=== PATIENT | female | born 1980 | race Caucasian/White ===

== ENCOUNTER 2016-03-31 23:51 | Emergency (ER) | payer OTHER ==
[2016-04-01] MEDS ORDERED: ACETAMINOPHEN 500 MG TABLET PO STA (00:21)
[2016-04-01] MEDS ORDERED: ACETAMINOPHEN 500 MG TABLET PO ONE (00:23)
--- NOTE | 2016-04-01 00:52 | XRAY Preliminary Report ---
Exam: XR Chest 2 View PA/LAT IMPRESSION: 1. No acute abnormality seen in the chest. [facility] SITE ID: [id number]
--- NOTE | 2016-04-01 00:55 | XRAY Report ---
EXAM: CHEST RADIOGRAPHY EXAM DATE: 04/01/2016 12:43 AM. CLINICAL HISTORY: Chest and sternal pain on the right, 4th rib. COMPARISON: None. TECHNIQUE: 2 views. FINDINGS: Lungs/Pleura: No focal opacities evident. No pneumothorax or pleural effusion. Normal volumes. Mediastinum: Heart and mediastinal contours are unremarkable. Other: None. IMPRESSION: 1. No acute abnormality seen in the chest. [facility] Referring Provider Line: [phone] SITE ID: [id number]
--- NOTE | 2016-04-01 00:57 | ED Physician Documentation ---
PD HPI UPPER EXT INJURY - Stated complaint Stated Complaint: CHEST,SHOULDER PX - Chief complaint Chief Complaint: General - History obtained from History obtained from: Patient - History of Present Illness Location: Right, Shoulder Type of injury: Twist Where injury occurred: Home Timing - onset: How many minutes ago (30) Timing - details: Abrupt onset Improved by: Immobilization Worsened by: Moving, Palpating Similar symptoms before: Has not had sx before Recently seen: Not recently seen - Additonal information Additional information: Patient is a 35 year old female wiht no significant past medical history who is presenting to the emergency department for pectoral pain that radiates to her shoulder. patient states that she was sleeping in bed when her right arm got caught in the blanket as she rolled over causing a tearing pain in her right chest with radiation to her right arm. Review of Systems Constitutional: denies: Fever, Chills Eyes: denies: Decreased vision Ears: denies: Loss of hearing, Ear pain Cardiac: denies: Chest pain / pressure, Palpitations, Pedal edema, Calf pain Respiratory: denies: Cough, Wheezing GI: denies: Abdominal Pain, Nausea, Vomiting Skin: denies: Rash, Lesions, Abrasion (s), Laceration (s) Musculoskeletal: reports: Extremity pain, Other (chest wall pain) Neurologic: denies: Generalized weakness, Focal weakness, Numbness Immunocompromised: denies: Immunocompromised PD PAST MEDICAL HISTORY - Past Medical History Past Medical History: Yes : Kidney stones - Past Surgical History Past Surgical History: Yes - Allergies Allergies/Adverse Reactions: Allergies Allergy/AdvReac Type Severity Reaction Status Date / Time ibuprofen [From Motrin] Allergy Respiratory Verified 04/01/16 00:06 naproxen sodium * Allergy Respiratory Verified 04/01/16 00:06 [From Aleve Cold and Sinus] - Social History Does the pt smoke?: No Smoking Status: Never smoker Does the pt drink ETOH?: No Does the pt have substance abuse?: No - Immunizations Immunizations are current?: Yes - POLST Patient has POLST: No PD ED PE NORMAL - Vitals Vital signs reviewed: Yes - General General: Alert and oriented X 3, No acute distress - HEENT HEENT: Atraumatic, PERRL - Neck Neck: No bony TTP - Cardiac Cardiac: RRR, No murmur - Respiratory Respiratory: No respiratory distress, Clear bilaterally - Abdomen Abdomen: Soft, Non tender, Non distended - Derm Derm: Normal color, Warm and dry, No rash - Extremities Extremities: No deformity, No tenderness to palpate, Normal ROM s pain, No edema , No calf tenderness / cord - Neuro Neuro: Alert and oriented X 3, 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, No motor deficit, No sensory deficit - Psych Psych: Normal mood, Normal affect PD ED PE EXPANDED - Cardiac Cardiac: Chest wall TTP (tenderness to palpation of right sternal boarder near 5th rib, no deformity, no step off, no signs of muscle tear, no ecchymosis) Results - Vitals Vitals: Vital Signs - 24 hr 03/31/16 23:57 Temperature 36.2 C L Heart Rate 83 Respiratory 18 Rate Blood Pressure 121/79 O2 Saturation 97 Oxygen O2 Source Room air - Rads (name of study) chest Radiology: Final report received (normal chest x-ray) PD MEDICAL DECISION MAKING - ED course Complexity details: reviewed results, re-evaluated patient, considered differential, d/w patient ED course: Patient was seen and examined at bedside. patient was in no acute distress. Patient was treated with tylenol and sent for imaging. When patient return the results were reviewed and within normal limits. Patient's symptoms were likely due to a muscle strain. Patient reqiured no further work up and was stable for discharge with outpatient follow. Departure - Departure Disposition: 01 Home, Self Care Clinical Impression: Muscle strain of chest wall Condition: Good Instructions: ED Strain Muscle Ext Follow-Up: primary,care provider [Other] - As Needed Comments: Your diagnostics today were within normal limits. X-ray is mainly used for fractures or dislocations but cannot rule out muscle strains or tears. You symptoms are most consistent with a muscle strain. Due to your allergy you should take tylenol for pain and you should ice in the initial phase and then start to incorporate heat into your treatment. You should follow up with your pmd if your symptoms persist for more than 2 weeks. You may return to the emergency department at any time for new, worsening or uncontrollable symptoms.
[2016-04-01 01:13] VITALS: BP 89/42
== END 2016-04-01 01:11 | disposition home or self-care (01) ==
LOC: ED 23:51
DX: S29.011A Strain of muscle and tendon of front wall of thorax, initial encounter (principal); M25.511 Pain in right shoulder; X50.1XXA Overexertion from prolonged static or awkward postures, initial encounter; Y93.84 Activity, sleeping; Y92.003 Bedroom of unspecified non-institutional (private) residence as the place of occurrence of the external cause; Y99.8 Other external cause status; Z88.6 Allergy status to analgesic agent
CPT/HCPCS: 71020; 99283; A9270

== ENCOUNTER 2016-05-01 18:51 | Emergency (ER) | payer OTHER ==
[2016-05-01] MEDS ORDERED: diazePAM 5 MG TABLET PO STA (19:34)
[2016-05-01] MEDS ORDERED: ONDANSETRON ODT 4 MG TABLET TL STA (19:34)
[2016-05-01] MEDS ORDERED: ONDANSETRON ODT 4 MG TABLET ONE (19:37)
[2016-05-01] MEDS ORDERED: diazePAM 5 MG TABLET PO ONE (19:37)
[2016-05-01] MEDS ORDERED: cefTRIAXone 1 GM VIAL IM STA (20:17)
[2016-05-01] MEDS ORDERED: cefTRIAXone 1 GM VIAL ONE (20:21)
[2016-05-01] MEDS ORDERED: LIDOCAINE-MPF 1% 5 ML VIAL ONE (20:21)
== END 2016-05-01 20:38 | disposition home or self-care (01) ==
DX: N12 Tubulo-interstitial nephritis, not specified as acute or chronic (principal); M51.35 Other intervertebral disc degeneration, thoracolumbar region; Z97.5 Presence of (intrauterine) contraceptive device
CPT/HCPCS: 36415; 72100; 80053; 81001; 81025; 83690; 85025; 96372; 99283; 99284; A9270; Q0162

== ENCOUNTER 2016-06-26 19:07 | Emergency (ER) | payer OTHER ==
[2016-06-26 19:12] VITALS: BP 119/75
--- NOTE | 2016-06-26 19:27 | ED Physician Documentation ---
History of Present Illness - Stated complaint Stated Complaint: FEET PX - Chief complaint Chief Complaint: Ext Problem - History obtained from History obtained from: Patient - History of Present Illness Timing: Other (She is subacute occasional stabbing pains to the bottom of her feet, feels like she is getting stabbed, it only lasts for a few moments. Today it is associated with chest pressure and her hands are going numb as well. There is no shortness of breath. She is on a ketogenic diet.) Review of Systems Constitutional: denies: Fever, Chills Nose: reports: Reviewed and negative Cardiac: reports: Chest pain / pressure. denies: Palpitations, Pedal edema, Calf pain Respiratory: denies: Dyspnea PD PAST MEDICAL HISTORY - Past Medical History : Kidney stones - Past Surgical History Past Surgical History: Yes - Present Medications Home Medications: Ambulatory Orders Medication Instructions Recorded Confirmed Ciprofloxacin HCl [Cipro] 500 mg PO BID #20 tablet 05/01/16 Promethazine [Phenergan] 25 mg PO Q6H PRN #10 tab 05/01/16 - Allergies Allergies/Adverse Reactions: Allergies Allergy/AdvReac Type Severity Reaction Status Date / Time ibuprofen [From Motrin] Allergy Respiratory Verified 04/01/16 00:06 naproxen sodium * Allergy Respiratory Verified 04/01/16 00:06 [From Aleve Cold and Sinus] - Social History Does the pt smoke?: No Smoking Status: Never smoker Does the pt drink ETOH?: No Does the pt have substance abuse?: No - Immunizations Immunizations are current?: Yes - POLST Patient has POLST: No PD ED PE NORMAL - Vitals Vital signs reviewed: Yes - General General: Alert and oriented X 3, No acute distress - Neck Neck: Supple, no meningeal sign, No bony TTP - Cardiac Cardiac: RRR, No murmur - Respiratory Respiratory: No respiratory distress, Clear bilaterally - Abdomen Abdomen: Soft, Non tender - Extremities Extremities: Other (Slightly diminished sensation to the bottom of both feet, difficulty with sharp versus dull discrimination but gross sensation is intact. Normal pedal and radial pulses.) - Neuro Neuro: Alert and oriented X 3, No motor deficit, No sensory deficit, Normal speech, Other - Psych Psych: Normal mood, Normal affect Results - Vitals Vitals: Vital Signs - 24 hr 06/26/16 19:09 Temperature 36.8 C Heart Rate 74 Respiratory 12 Rate Blood Pressure 119/75 O2 Saturation 100 Oxygen O2 Source Room air - EKG (time done) 1935 Rate: Rate (enter#) (80) Rhythm: NSR [place]: Normal Intervals: Normal [place] QRS: Normal Ischemia: Normal ST segments Computer interpretation: Agree with computer - Labs Labs: Laboratory Tests 06/26/16 06/26/16 06/26/16 19:30 19:35 19:35 Sodium 135 Potassium 3.8 Chloride 100 L Carbon Dioxide 27 Anion Gap 8.0 BUN 15 Creatinine 0.7 Estimated GFR (MDRD) 95 Glucose 96 Calcium 9.1 Total Bilirubin < 0.2 L AST 22 ALT 18 Alkaline Phosphatase 54 Total Protein 8.1 Albumin 4.7 Globulin 3.4 Albumin/Globulin Ratio 1.4 Lipase 40 TSH 3.38 Urine Color YELLOW Urine Clarity CLEAR Urine pH 5.0 Ur Specific [place] <=1.005 Urine Protein NEGATIVE Urine Glucose (UA) NEGATIVE Urine Ketones NEGATIVE Urine Occult Blood NEGATIVE Urine Nitrite NEGATIVE Urine Bilirubin NEGATIVE Urine Urobilinogen 0.2 (NORMAL) Ur Leukocyte Esterase NEGATIVE Ur Microscopic Review NOT INDICATED Urine Culture Comments NOT INDICATED Urine HCG, Qual NEGATIVE PD MEDICAL DECISION MAKING - ED course ED course: She has a peripheral neuropathy of unclear etiology, doesn't seem to be a vascular cause. Thyroid function electrolytes are normal. She does drink heavily but not daily. She is also on a ketogenic diet. The patient and family were counseled as to the diagnosis and need for followup. I counseled the patient with regard to signs and symptoms that would necessitate an urgent reevaluation in the emergency department. They understand they are welcome to return at any time if worse or if not improving as expected. This document was made in part using voice recognition software. While efforts are made to proofread this document, sound alike and grammatical errors may occur. Departure - Departure Disposition: 01 Home, Self Care Clinical Impression: Neuropathy Condition: Good Record reviewed to determine appropriate education?: Yes Instructions: ED Neuropathy Peripheral Comments: TALK WITH YOUR PMD ABOUT NERVE CONDUCTION AND VITAMIN TESTING.
[2016-06-26 20:02] LABS: BILIRUBIN,URINE NEGATIVE (NEGATIVE)
[2016-06-26 20:03] LABS: HCG UR QUAL NEGATIVE; UA CHARGE (STRIP ONLY) YES; UR CULTURE IF IND NOT INDICATED
[2016-06-26 20:25] LABS: ALBUMIN/GLOBULIN RATIO 1.4 (1.0-2.2); BILIRUBIN,TOTAL < 0.2 mg/dL (0.2-1.0); BUN - BLOOD UREA NITROGEN 15 mg/dL (6-20); CALCIUM 9.1 mg/dL (8.5-10.3); CARBON DIOXIDE - CO2 27 mmol/L (21-32); CHLORIDE 100 mmol/L (101-111); CREATININE 0.7 mg/dL (0.4-1.0); GFR - MDRD 95 (>89); GLUCOSE 96 mg/dL (70-100); LIPASE 40 U/L (22-51); POTASSIUM 3.8 mmol/L (3.5-5.0); SODIUM 135 mmol/L (135-145); TOTAL PROTEIN 8.1 g/dL (6.7-8.2)
== END 2016-06-26 20:55 | disposition home or self-care (01) ==
LOC: ED 19:07
DX: G62.9 Polyneuropathy, unspecified (principal); R07.89 Other chest pain
CPT/HCPCS: 36415; 80053; 81001; 81003; 81025; 83690; 84443; 87086; 93005; 93010; 99283; 99284

== ENCOUNTER 2016-10-25 12:16 | Emergency (ER) | payer OTHER ==
[2016-10-25 12:27] VITALS: BP 105/72
[2016-10-25] MEDS ORDERED: predniSONE 20 MG TABLET PO STA (13:19)
[2016-10-25] MEDS ORDERED: SULFAMETH/TRIMETH DS 800/160 MG TABLET PO STA (13:19)
[2016-10-25] MEDS ORDERED: CEPHALEXIN 250 MG CAPSULE PO STA (13:19)
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
[2016-10-25] MEDS ORDERED: CEPHALEXIN 250 MG CAPSULE PO ONE (13:27)
[2016-10-25] MEDS ORDERED: predniSONE 20 MG TABLET ONE (13:27)
[2016-10-25] MEDS ORDERED: SULFAMETH/TRIMETH DS 800/160 MG TABLET PO ONE (13:27)
== END 2016-10-25 13:33 | disposition home or self-care (01) ==
LOC: ED 12:16
DX: L03.113 Cellulitis of right upper limb (principal); T78.40XA Allergy, unspecified, initial encounter
CPT/HCPCS: 99283; A9270; J7512

== ENCOUNTER 2017-05-02 21:20 | Outpatient (CLI) | payer OTHER | END 2017-05-02 23:59 | disposition critical access hospital (66) | LOC: EMS 21:20 | PROVIDERS: ATTEND Surgery | DX: S09.90XA Unspecified injury of head, initial encounter (principal); R41.0 Disorientation, unspecified; R07.9 Chest pain, unspecified; R47.81 Slurred speech; X58.XXXA Exposure to other specified factors, initial encounter; Y92.481 Parking lot as the place of occurrence of the external cause | CPT/HCPCS: A0425; A0427 ==

== ENCOUNTER 2017-05-02 21:37 | Emergency (ER) | payer OTHER ==
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
[2017-05-02] MEDS ORDERED: LORazepam 2 MG/ML VIAL IVP STA (22:05)
--- NOTE | 2017-05-02 22:55 | CT Preliminary Report ---
Exam: CT HEAD W/O IMPRESSION: No acute intracranial process. [facility] SITE ID: [id number]
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
--- NOTE | 2017-05-02 22:56 | XRAY Report ---
EXAM: LEFT RIB RADIOGRAPHY EXAM DATE: 05/02/2017 10:49 PM. CLINICAL HISTORY: Fall, left chest pain. COMPARISON: Chest, 04/01/2016. TECHNIQUE: 1 view of the chest and 2 views of the ribs. FINDINGS: Bones: No fracture seen. Lungs: No alveolar consolidation or pleural effusion. No pneumothorax. Mediastinum: Heart and mediastinal contours are unremarkable. Other: None. IMPRESSION: 1. No acute abnormality seen in the chest or ribs. [facility] Referring Provider Line: [phone] SITE ID: [id number]
--- NOTE | 2017-05-02 23:05 | CT Report ---
EXAM: CT MAXILLOFACIAL WITHOUT CONTRAST EXAM DATE: 05/02/2017 10:36 PM. CLINICAL HISTORY: Head injury, left facial swelling. COMPARISONS: None. TECHNIQUE: Thin-section axial images were acquired of the face without contrast. Post-processing: Cor onal and sagittal reformats. Other: None. In accordance with CT protocol optimization, one or more of the following dose reduction techniques w ere utilized for this exam: automated exposure control, adjustment of mA and/or KV based on patient s ize, or use of iterative reconstructive technique. FINDINGS: Soft Tissue: The infratemporal fossa and parapharyngeal spaces are unremarkable. Orbits: Symmetric and unremarkable. Bones: Nondisplaced left orbital roof fracture (series 6, image 47 and series 3, image 122). Temporomandibular Joints: The temporomandibular joints are symmetric and normally located. Sinuses: Mild left maxillary sinus and mild ethmoid sinus mucosal thickening. No sinus fluid levels. Other: None. IMPRESSION: Nondisplaced left orbital roof fracture. [facility] Referring Provider Line: [phone] SITE ID: [id number]
[2017-05-02] MEDS ORDERED: LIDOCAINE 1% 2 ML VIAL SUBQ STA (23:19)
[2017-05-03] MEDS ORDERED: SODIUM CHLORIDE 0.9% 1,000 ML IV STA (00:19)
[2017-05-03] MEDS ORDERED: SODIUM CHLORIDE 0.9% 1,000 ML IV ONE (00:29)
[2017-05-03 01:30] LABS: BASOPHILS % (AUTO) 0.5 %; EOSINOPHILS # (AUTO) 0.1 10^3/uL (0.0-0.7); EOSINOPHILS % (AUTO) 1.1 %; HGB - HEMOGLOBIN 13.9 g/dL (12.0-16.0); LYMPHOCYTES % (AUTO) 30.2 %; MEAN CORPUSCULAR HEMOGLOBIN 31.1 pg (27.0-31.0); MEAN CORPUSCULAR HGB CONC 32.6 g/dL (32.0-36.0); MEAN CORPUSCULAR VOLUME 95.3 fL (81.0-99.0); MEAN PLATELET VOLUME 8.1 fL (7.9-10.8); MONOCYTES # (AUTO) 0.2 10^3/uL (0.0-1.0); MONOCYTES % (AUTO) 3.2 %; NEUTROPHILS # (AUTO) 4.3 10^3/uL (1.5-6.6); PLT - PLATELET COUNT 346 10^3/uL (130-450); RED BLOOD COUNT 4.48 10^6/uL (4.20-5.40); RED CELL DISTRIBUTION WIDTH 14.5 % (12.0-15.0); WHITE BLOOD COUNT 6.5 x10^3/uL (4.8-10.8)
[2017-05-03 01:39] LABS: CALCIUM 8.6 mg/dL (8.5-10.3); CREATININE 0.5 mg/dL (0.4-1.0)
[2017-05-03 02:34] VITALS: BP 91/71
[2017-05-03] MEDS ORDERED: BACITRACIN OINT TOP ONE (02:38)
== END 2017-05-03 02:33 | disposition home or self-care (01) ==
LOC: EDUNIT# → SUPCPDRO 21:37 → ED 21:37
DX: S09.90XA Unspecified injury of head, initial encounter (principal); S01.81XA Laceration without foreign body of other part of head, initial encounter; S02.82XA Fracture of other specified skull and facial bones, left side, initial encounter for closed fracture; X58.XXXA Exposure to other specified factors, initial encounter
CPT/HCPCS: 12011; 36415; 70450; 70486; 71101; 80048; 80320; 85025; 96374; 99284; 99285; A9270; J2060

== ENCOUNTER 2017-11-10 10:32 | Emergency (ER) | payer OTHER ==
[2017-11-10 10:40] VITALS: BP 114/73
--- NOTE | 2017-11-10 11:50 | ED Physician Documentation ---
PD HPI CHEST PAIN - Stated complaint Stated Complaint: CHEST PX - Chief complaint Chief Complaint: Cardiac - History obtained from History obtained from: Patient - History of Present Illness Timing - onset: Today Timing - onset during: Rest Timing - duration: Hours Timing - details: Gradual onset, Still present Quality: Sharp, Pain Location: Substernal, Left chest Radiation: Abdominal, Left upper extremity Improved by: Antacids Worsened by: Palpation Associated symptoms: No: Shortness of air, Diaphoresis, Nausea, Vomiting, Feeling faint / dizzy, General Weakness, Palpitations, Cough Similar symptoms before: Diagnosis (heart burn) Recently seen: Not recently seen Review of Systems Constitutional: denies: Fever, Chills Eyes: denies: Decreased vision Ears: denies: Ear pain Nose: denies: Congestion Throat: denies: Sore throat Cardiac: reports: Chest pain / pressure. denies: Palpitations Respiratory: denies: Dyspnea, Cough GI: reports: Abdominal Pain. denies: Abdominal Swelling, Nausea, Vomiting, Diarrhea : denies: Dysuria, Frequency Skin: denies: Rash PD PAST MEDICAL HISTORY - Past Medical History Past Medical History: Yes : Kidney stones - Past Surgical History Past Surgical History: Yes - Present Medications Home Medications: Ambulatory Orders Medication Instructions Recorded Confirmed Sucralfate [Carafate] 1 gm PO ACHS #30 tablet 11/10/17 - Allergies Allergies/Adverse Reactions: Allergies Allergy/AdvReac Type Severity Reaction Status Date / Time ibuprofen [From Motrin] Allergy Respiratory Verified 11/10/17 10:40 naproxen sodium * Allergy Respiratory Verified 11/10/17 10:40 [From Aleve Cold and Sinus] - Social History Does the pt smoke?: No Smoking Status: Never smoker Does the pt drink ETOH?: No Does the pt have substance abuse?: No - Immunizations Immunizations are current?: Yes - POLST Patient has POLST: No PD ED PE NORMAL - Vitals Vital signs reviewed: Yes (normal ) - General General: Alert and oriented X 3, Well developed/nourished, Other (patient appears to be in pain ) - HEENT HEENT: Atraumatic, PERRL, EOMI - Neck Neck: Supple, no meningeal sign, No bony TTP - Cardiac Cardiac: RRR, No murmur - Respiratory Respiratory: No respiratory distress, Clear bilaterally - Abdomen Abdomen: Soft, Other (mild epigastric tenderness ) - Back Back: No CVA TTP, No spinal TTP - Derm Derm: Normal color, Warm and dry, No rash - Extremities Extremities: No deformity, No edema - Neuro Neuro: Alert and oriented X 3, heel splitter 2-12 intact, No motor deficit, No sensory deficit, Normal speech Eye Opening: Spontaneous Motor: Obeys Commands Verbal: Oriented GCS Score: 15 - Psych Psych: Normal mood, Normal affect Results - Vitals Vitals: Vital Signs - 24 hr 11/10/17 10:35 Temperature 36.8 C Heart Rate 78 Respiratory 16 Rate Blood Pressure 114/73 O2 Saturation 100 Oxygen O2 Source Venturi mask - EKG (time done) 1038 Rate: Rate (enter#) (79) Rhythm: NSR Ischemia: Normal ST segments Compare to prior EKG: Unchanged from prior EKG (5--17) Computer interpretation: Agree with computer PD MEDICAL DECISION MAKING - ED course Complexity details: reviewed results, re-evaluated patient, considered differential, d/w patient ED course: 36-year-old female with heartburn that radiates up into her neck denies use of ibuprofen or Aleve and states that she does drink on a regular basis beer.. She has developed this increased symptoms this morning and got very little relief w ith Rolaids. Here in the emergency department she is administered a GI cocktail consisting of 10 mg of viscous lidocaine and 30 mg Mylanta with near complete resolution of her pain. I suspect her pain is related to reflux. She is given a dose of Pepcid here in the emergency department we will start her on some - Sepsis Event Vital Signs: Vital Signs - 24 hr 11/10/17 10:35 Temperature 36.8 C Heart Rate 78 Respiratory 16 Rate Blood Pressure 114/73 O2 Saturation 100 Oxygen O2 Source Venturi mask Departure - Departure Disposition: 01 Home, Self Care Clinical Impression: Reflux esophagitis Condition: Stable Instructions: ED GERD Follow-Up: Lex Calvo ARNP [Primary Care Provider] - Prescriptions: Sucralfate [Carafate] 1 gm PO ACHS #30 tablet Comments: Today it appears the symptoms of chest pain you are having are related to your esophagus and stomach. It is imperative that you use a medication to reduce the acid in her stomach for at least 10 days. I recommend you use Pepcid AC. Discharge Date/Time: 11/10/17 12:35
[2017-11-10] MEDS ORDERED: LIDOCAINE VISCOUS 2% 15 ML UDC MM STA (11:57)
[2017-11-10] MEDS ORDERED: MAG HYDROX/AL HYDROX/SIMETH 30 ML UDC PO STA (11:57)
[2017-11-10] MEDS ORDERED: FAMOTIDINE 20 MG TABLET PO STA (12:28)
== END 2017-11-10 12:35 | disposition home or self-care (01) ==
LOC: ED 10:32
DX: K21.0 Gastro-esophageal reflux disease with esophagitis (principal)
CPT/HCPCS: 93005; 99283; A9270

== ENCOUNTER 2018-01-30 10:59 | Day surgery (SDC) | payer OTHER ==
[~2018-01-30 10:59] MED LIST: ceFAZolin 2 GM/50 ML 2 GM/50 ML BAG IV ONE
[2018-01-30 11:27] LABS: HCG UR QUAL NEGATIVE
[2018-01-30] MEDS ORDERED: LACTATED RINGERS 1,000 ML IV ONE ×2 (11:36→15:04)
--- NOTE | 2018-01-30 12:37 | ANESTHESIA ---
Pre-Anesthesia VS, & Labs - Diagnosis Mechanical complication of IUD - Procedure Hysteroscopy, IUD removal Vital Signs: Temp Pulse Resp BP Pulse Ox 36.6 C 99 18 112/63 99 01/30/18 11:09 01/30/18 11:09 01/30/18 11:09 01/30/18 11:09 01/30/18 11:09 Height 5 ft 7 in Weight (kg) 73.48 kg Body Mass Index 25.3 - NPO >8 hours Last Fluid Intake: Water at 0900 - Is Patient ?: No - Lab Results Lab results reviewed: Yes Home Medications and Allergies Home Medications: Ambulatory Orders Omeprazole Magnesium [Prilosec] 10 mg PO 01/23/18 Omeprazole Magnesium [Prilosec] 10 mg PO 01/23/18 Allergies/Adverse Reactions: Allergies Allergy/AdvReac Type Severity Reaction Status Date / Time ibuprofen [From Motrin] Allergy Respiratory Verified 01/23/18 10:38 naproxen sodium * Allergy Respiratory Verified 01/23/18 10:38 [From Aleve Cold and Sinus] NSAIDS (Non-Steroidal Allergy Respiratory Verified 01/30/18 11:38 Anti-Inflamma ciprofloxacin [From Cipro] AdvReac Rash Verified 01/23/18 10:38 Anes History & Medical History - Anesthetic History Anesthesia Complications: reports: No previous complications Family history of Anesthesia Complications: Denies Family history of Malignant Hyperthermia: Denies - Medical History Cardiovascular: reports: None Pulmonary: reports: None Gastrointestinal: reports: None, GERD Urinary: reports: Kidney stones Neuro: reports: None Musculoskeletal: reports: None Endocrine/Autoimmune: reports: None Blood Disorders: reports: None Skin: reports: None Smoking Status: Current some day smoker Psychosocial: reports: No issues indicated - Surgical History Urologic: Ureterolithotomy (stones) Gynecologic: section Exam General: Alert, Oriented x3 Dental: WNL, TMJ Mouth Opening: Greater than 4 Fingerbreadths Mallampati classification: I Thyromental Distance: greater than 6 cm Respiratory: Lungs clear Cardiovascular: Regular rate Neurological: Normal speech Mental/Cognitive Status: Alert/Oriented X3 Cognitive Status: Within normal limits Plan Anesthesia Type: General Consent for Procedure(s) Verified and Reviewed: Yes Code Status: Attempt Resuscitation ASA classification: 2-Mild systemic disease Is this case an emergency?: No
[2018-01-30] MEDS ORDERED: LIDOCAINE 1% 50 ML MDV ONE (14:03)
[2018-01-30] MEDS ORDERED: LIDOCAINE 1% 50 ML MDV SUBQ ONE (14:39)
[2018-01-30] MEDS ORDERED: DEXAMETHASONE 4 MG/ML VIAL IVP ONE (14:58)
[2018-01-30] MEDS ORDERED: LIDOCAINE-MPF 2% 5 ML VIAL IM ONE (14:58)
[2018-01-30] MEDS ORDERED: fentaNYL 100 MCG/2 ML VIAL IVP ONE (14:58)
[2018-01-30] MEDS ORDERED: PROPOFOL 200 MG/20 ML VIAL IVP ONE (14:58)
[2018-01-30] MEDS ORDERED: ONDANSETRON 4 MG/2 ML VIAL IVP ONE (14:58)
[2018-01-30] MEDS ORDERED: MIDAZOLAM 2 MG/2 ML VIAL IVP ONE (14:58)
[2018-01-30] MEDS ORDERED: ONDANSETRON 4 MG/2 ML VIAL IVP PRN (15:14)
[2018-01-30] MEDS ORDERED: HYDROcod/ACETAM 10 MG/325 MG TABLET PO PRN (15:14)
--- NOTE | 2018-01-30 15:28 | OPERATIVE REPORT ---
Operative Report - General Planned Procedure: Hysteroscopic removal of intrauterine device (IUD), insertion of IUD Pre-Op Diagnosis: Mechanical complication of IUD Procedure Performed: Dilation of the cervix, removal of retained intrauterine device, insertion of new progestin (Mirena) intrauterine device Post Op Diagnosis: ARACELI - Procedure Note Primary Surgeon: Dr. Prisca Yu Secondary Surgeon: None Anesthesia Provider: OLE Whipple Anesthesia Technique: General LMA, Local Pathology: None IV Fluids (mL): 700 Estimated Blood Loss (mL): 5 Urine Output (mL): 15 Complications: None - Other Other Information/Narrative: Indications: The patient is a 37-year-old 2 para 1 abortus 1 female here for hysteroscopic removal of a retained Mirena intrauterine device followed by reinsertion of a new Mirena intrauterine device. She had a failed attempt at removal in the [facility] x2, including once with misoprostol to soften the cervix. She also had failed attempts with her PCM. At the time of the last clinic attempt, the cervix could be readily entered, but the IUD could not be grasped and removed with packing forceps, IUD hook, or Cytobrush. She had a pelvic ultrasound which showed appropriately placed intrauterine device despite the strings not being seen visible.The risks, benefits, limitations, alternatives, and expectations of surgery were discussed. The consent was reviewed and signed prior to surgery. Findings: Uterus anteverted and approximately 6 weeks in size. No adnexal masses were palpable. Internal os was slightly stenotic but opened easily with serial dilation using Hanks dilators. IUD removed with blind sweeps using alligator clamp. Uterus sounded to 9.5 cm. Procedure: The patient was taken to the operating room, where general anesthesia with LMA was administered without difficulty. She was then positioned in the low dorsal lithotomy position with her lower extremities in [place] stirrups. Exam under anesthesia was then performed with the findings as noted above. Vagina and perineum were then prepped and draped in a sterile fashion, and bladder was drained with an in-and-out catheterization. Procedure Time-Out was then performed. A sterile bivalved speculum was then placed into the vagina, and the anterior lip of the cervix was grasped with a single-tooth tenaculum. One percent L idocaine with epinephrine was then injected at the 2:00, 4:00, 7:00, and 10:00 positions for a paracervical block. Serial dilation using Eben dilators was then performed. An IUD hook was inserted and unsuccessful at retrieving the strings. Blind placement of alligator forcep was then performed, and on the fourth attempt, the IUD was grasped and removed. The uterus was then sounded, and the new Mirena IUD inserted without difficulty. Mirena Lot # [id number], expiration date 04/2020. Strings were trimmed to 3 cm. There was minimal bleeding from the cervix at this time. The tenaculum was removed, and the tenaculum sites were hemostatic without need for silver nitrate. At this point, the procedure was deemed completed. Sponge, lap, and needle count were correct x 3, and there were no complications. The patient was awakened, replaced supine, and transferred to the PACU in stable condition.
[2018-01-30 15:33] VITALS: BP 112/60
== END 2018-01-30 11:00 | disposition home or self-care (01) ==
LOC: SDS 10:59
PROVIDERS: ATTEND Obstetrics & Gynecology
PROC: 0U2DXHZ Change Contraceptive Device in Uterus and Cervix, External Approach (ICD-10-PCS; principal; 2018-01-30 12:00)
PROC: 0UJD8ZZ Inspection of Uterus and Cervix, Via Natural or Artificial Opening Endoscopic (ICD-10-PCS; 2018-01-30 12:00)
DX: T83.32XA Displacement of intrauterine contraceptive device, initial encounter (principal); F17.200 Nicotine dependence, unspecified, uncomplicated
CPT/HCPCS: 58300; 58301; 58555; 81025; 87070; 87430; J0690; J7120

== ENCOUNTER 2019-03-25 03:39 | Emergency (ER) | payer OTHER ==
--- NOTE | 2019-03-25 03:40 | ED Physician Documentation ---
History of Present Illness - Stated complaint Stated Complaint: L HAND SWELLING - History obtained from History obtained from: Patient (Patient is a [id number] 38-year-old female who presents with a chief complaint of swelling and redness to the left hand. 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 She denies any fevers or trauma she denies any history of MRSA or any history of IV drug abuse. the patient reports she is not currenlty and reports her LMP was 1 week ago.) Review of Systems Constitutional: reports: Reviewed and negative Eyes: reports: Reviewed and negative Ears: reports: Reviewed and negative Nose: reports: Reviewed and negative Throat: reports: Reviewed and negative Cardiac: reports: Reviewed and negative Respiratory: reports: Reviewed and negative GI: reports: Reviewed and negative : reports: Reviewed and negative Skin: reports: Other (Redness and swelling to the left hand) Musculoskeletal: reports: Other (Redness and swelling to the left hand.) Neurologic: reports: Reviewed and negative Psychiatric: reports: Reviewed and negative Endocrine: reports: Reviewed and negative Immunocompromised: reports: Reviewed and negative PD PAST MEDICAL HISTORY - Past Medical History Cardiovascular: None Respiratory: None Neuro: None Endocrine/Autoimmune: None GI: None, GERD : Kidney stones HEENT: None Psych: Depression, Anxiety, Panic attacks Musculoskeletal: None Derm: None - Past Surgical History Past Surgical History: Yes /CUT OFF MAN: section - Present Medications Home Medications: Ambulatory Orders Medication Instructions Recorded Confirmed Doxycycline Monohydrate 100 mg PO BID 10 Days #20 tablet 03/25/19 - Allergies Allergies/Adverse Reactions: Allergies Allergy/AdvReac Type Severity Reaction Status Date / Time ibuprofen [From Motrin] Allergy Respiratory Verified 03/25/19 03:48 naproxen sodium * Allergy Respiratory Verified 03/25/19 03:48 [From Aleve Cold and Sinus] NSAIDS (Non-Steroidal Allergy Respiratory Verified 03/25/19 03:48 Anti-Inflamma ciprofloxacin [From Cipro] AdvReac Rash Verified 03/25/19 03:48 - Social History Does the pt smoke?: No Smoking Status: Current some day smoker Does the pt drink ETOH?: No Does the pt have substance abuse?: No - Immunizations Immunizations are current?: Yes - POLST Patient has POLST: No PD ED PE NORMAL - Vitals Vital signs reviewed: Yes - General General: Alert and oriented X 3, No acute distress - HEENT HEENT: PERRL - Neck Neck: Supple, no meningeal sign - Cardiac Cardiac: RRR, No murmur - Respiratory Respiratory: Clear bilaterally - Abdomen Abdomen: Normal bowel sounds, Soft, Non tender, Non distended - Derm Derm: Other (There is swelling and redness diffusely over the palmar aspect of the index finger of the left hand at the MCP joint and a minimal amount at the PIP joint. There is swelling but it is asymmetric of the left first index finger the patient is able to extend at the MCP as well as the PIP and DIP on passive and active range of motion there is diffuse tenderness there is mild pain on passive flexion but there is not severe pain on passive extension at the MCP PIP and DIP joints.) - Extremities Extremities: Other (There is swelling and redness diffusely over the palmar aspect of the index finger of the left hand at the MCP joint and a minimal amount at the PIP joint. There is swelling but it is asymmetric of the left first index finger the patient is able to extend at the MCP as well as the PIP and DIP on passive and active range of motion there is diffuse tenderness there is mild pain on passive flexion but there is not severe pain on passive extension at the MCP PIP and DIP joints.There is no crepitus her sensations intact to light touch there is no streaking there is no epitrochlear or axillary lymphadenopathy.) - Neuro Neuro: Alert and oriented X 3 - Psych Psych: Normal mood, Normal affect Results - Vitals Vitals: Vital Signs - 24 hr 03/25/19 03/25/19 03:40 05:05 Temperature 36.9 C Heart Rate 70 55 L Respiratory 16 16 Rate Blood Pressure 119/72 100/70 O2 Saturation 100 100 Oxygen O2 Source Room air - Labs Labs: Laboratory Tests 03/25/19 03/25/19 04:20 04:20 WBC 6.7 RBC 3.88 L Hgb 12.8 Hct 38.4 MCV 99.0 MCH 33.0 H MCHC 33.3 RDW 12.9 Plt Count 257 MPV 9.6 Neut # (Auto) 4.1 Lymph # (Auto) 1.7 Burke # (Auto) 0.5 Eos # (Auto) 0.3 Baso # (Auto) 0.0 Absolute Nucleated RBC 0.00 Nucleated RBC % 0.0 Sodium 135 Potassium 3.7 Chloride 100 L Carbon Dioxide 23 Anion Gap 12.0 BUN 24 H Creatinine 0.7 Estimated GFR (MDRD) 93 Glucose 99 Calcium 8.5 PD MEDICAL DECISION MAKING - ED course Complexity details: other (There is no Local orthopedic surgery on-call. 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 I had a lengthy discussion with this patient regarding her physical exam and my concern for infectious tenosynovitis I did recommend that the patient be admitted for IV antibiotics to fill facility that would have a hand surgeon available, the patient is refusing to be transferred to higher level of care she does have medical decision-making capability and capacity and accepts all the risks of not being transferred to higher level of care to include possible disfigurement of her left hand to include worsening infection and possible life-threatening conditions as well as limb threatening conditions. Again had a lengthy discussion with this patient and she would like to be discharged home and placed on oral antibiotics and follow-up as an outpatient.) Departure - Departure Disposition: 01 Home, Self Care Clinical Impression: Cellulitis Qualifiers: Site of cellulitis: extremity Site of cellulitis of extremity: finger Later ality: left Qualified Code(s): L03.012 - Cellulitis of left finger Condition: Good Instructions: ED Infec Skin Cellulitis Follow-Up: Lex Calvo ARNP [Primary Care Provider] - Tomorrow Prescriptions: Doxycycline Monohydrate 100 mg PO BID 10 Days #20 tablet Comments: Take antibiotics as directed. Follow up with your primary care provider tomorrow for a recheck, if worsening return to an emergency department for further evaluation.
[2019-03-25] MEDS ORDERED: VANCOMYCIN INJ 1.75 GM in SODIUM CHLORIDE 0.9% 500 ML IV STA (04:06)
[2019-03-25] MEDS ORDERED: cefTRIAXone 1 GM in SODIUM CHLORIDE 0.9% MINIBAG 100 ML IV STA (04:07)
[2019-03-25 04:28] LABS: BASOPHILS % (AUTO) 0.4 %; EOSINOPHILS # (AUTO) 0.3 10^3/uL (0.0-0.7); EOSINOPHILS % (AUTO) 4.9 %; HGB - HEMOGLOBIN 12.8 g/dL (12.0-16.0); LYMPHOCYTES # (AUTO) 1.7 10^3/uL (1.5-3.5); LYMPHOCYTES % (AUTO) 25.2 %; MEAN CORPUSCULAR HGB CONC 33.3 g/dL (32.0-36.0); MEAN PLATELET VOLUME 9.6 fL (7.9-10.8); MONOCYTES # (AUTO) 0.5 10^3/uL (0.0-1.0); MONOCYTES % (AUTO) 7.9 %; NEUTROPHILS # (AUTO) 4.1 10^3/uL (1.5-6.6); NEUTROPHILS % (AUTO) 61.3 %; PLT - PLATELET COUNT 257 10^3/uL (130-450); RED BLOOD COUNT 3.88 10^6/uL (4.20-5.40); RED CELL DISTRIBUTION WIDTH 12.9 % (12.0-15.0); WHITE BLOOD COUNT 6.7 x10^3/uL (4.8-10.8)
[2019-03-25 04:36] LABS: CALCIUM 8.5 mg/dL (8.5-10.3); CREATININE 0.7 mg/dL (0.4-1.0)
--- NOTE | 2019-03-25 04:43 | XRAY Report ---
Reason: SWELLING Procedure Date: 03/25/2019 Accession Number: [id number] / [id number] Procedure: XR - Hand 3 View LT CPT Code: Final Report FULL RESULT: EXAM: LEFT HAND RADIOGRAPHY EXAM DATE: 03/25/2019 03:56 AM. CLINICAL HISTORY: SWELLING. COMPARISON: None. TECHNIQUE: 3 views. FINDINGS: Bones: No acute fracture seen. No focal area of bone destruction. Joints: No dislocation seen. Joint spaces appear intact. Soft Tissues: Soft tissue swelling. No radiopaque foreign body identified. IMPRESSION: 1. No acute osseous abnormality seen. 2. No radiopaque foreign body. RADIA
[2019-03-25] MEDS ORDERED: VANCOMYCIN 1 GM VIAL ONE (04:50)
[2019-03-25] MEDS ORDERED: DOXYCYCLINE 100 MG TABLET PO STA (05:26)
[2019-03-25] MEDS ORDERED: TETANUS/DIPHTHERIA TOXOID 0.5 ML SYRINGE IM ONE (05:30)
[2019-03-25] MEDS ORDERED: TETANUS/DIPHTHERIA/PERTUSSIS 0.5 ML SYRINGE IM ONE (05:57)
[2019-03-25 07:27] VITALS: BP 95/61
== END 2019-03-25 07:28 | disposition home or self-care (01) ==
LOC: ED 03:39
DX: L03.012 Cellulitis of left finger (principal); F17.200 Nicotine dependence, unspecified, uncomplicated
CPT/HCPCS: 36415; 73130; 80048; 85025; 87040; 90471; 90714; 96365; 96375; 99284; A9270; J3370

== ENCOUNTER 2020-11-03 09:12 | Outpatient (CLI) | payer OTHER ==
--- NOTE | 2020-11-04 12:58 | Mammography Report ---
BILATERAL DIGITAL DIAGNOSTIC MAMMOGRAM 3D/2D: 11/03/2020 CLINICAL: Palpable left breast lump. Diffuse left breast pain. Baseline exam. No prior exams were available for comparison. The tissue of both breasts is heterogeneously dense. T his may lower the sensitivity of mammography. No significant masses, calcifications, or other findings are seen in either breast. No abnormality which corresponds with the palpable abnormality is seen. IMPRESSION: INCOMPLETE: NEEDS ADDITIONAL IMAGING EVALUATION There is no abnormality seen in the left breast to correspond with the area of clinical concern and p alpable abnormality, however, ultrasound is recommended. This exam was interpreted at Station ID: [id number]. NOTE: For mammograms, a report in lay terms will be sent to the patient. Approximately 15% of breast malignancies will not be visualized mammographically. In the management of a palpable breast mass, a negative mammogram must not discourage biopsy of a clinically suspicious lesion. Electronically Signed By: Franco Dowell acr/:11/03/2020 10:14:25 ACR BI-RADS Category 0: Incomplete 3340F PARENCHYMAL PATTERN: (D) - The breast(s) demonstrate(s) heterogeneously dense fibroglandular monika lee. BI-RADS CATEGORY: (0) - 0 Ultrasound [id number] Immediate follow-up LATERALITY: (L)
--- NOTE | 2020-11-04 12:59 | Ultrasound Report ---
LIMITED ULTRASOUND OF LEFT BREAST: 11/03/2020 CLINICAL: Palpable left breast lumps x 2. Comparison is made to exam dated: 11/03/2020 mammogram - [facility]. Real-time ultrasound of the left breast 2 o'clock and 6 o'clock regions was performed. Beard scale i mages of the real-time examination were reviewed. No abnormality which corresponds with the palpable abnormality is seen. IMPRESSION: NEGATIVE There is no sonographic evidence of malignancy. There is no abnormality seen in the left breast to correspond with the area of clinical concern and p alpable abnormality, however, clinical followup is recommended. Return to annual mammogram screening schedule is recommended. This exam was interpreted at Station ID: [id number]. Electronically Signed By: Franco Dowell acr/:11/03/2020 12:24:07 Ultrasound BI-RADS: 1 Negative BI-RADS CATEGORY: (1) - 1 RECOMMENDATION: (ANNUAL) - Recommend routine annual screening mammography. [id number] return to screening LATERALITY: (B)
== END 2020-11-03 09:13 | disposition home or self-care (01) ==
LOC: DI 09:12
PROVIDERS: ATTEND Nurse Practitioner
DX: N64.4 Mastodynia (principal); N63.20 Unspecified lump in the left breast, unspecified quadrant; R92.8 Other abnormal and inconclusive findings on diagnostic imaging of breast

== ENCOUNTER 2020-12-06 16:39 | Outpatient (CLI) | payer OTHER ==
[2020-12-06 16:56] LABS: BASOPHILS % (AUTO) 0.4 %; EOSINOPHILS # (AUTO) 0.1 10^3/uL (0.0-0.7); EOSINOPHILS % (AUTO) 1.5 %; HGB - HEMOGLOBIN 13.1 g/dL (12.0-16.0); LYMPHOCYTES # (AUTO) 1.9 10^3/uL (1.5-3.5); LYMPHOCYTES % (AUTO) 25.6 %; MEAN CORPUSCULAR HEMOGLOBIN 32.3 pg (27.0-31.0); MEAN CORPUSCULAR HGB CONC 33.6 g/dL (32.0-36.0); MEAN CORPUSCULAR VOLUME 96.1 fL (81.0-99.0); MEAN PLATELET VOLUME 9.4 fL (7.9-10.8); MONOCYTES # (AUTO) 0.6 10^3/uL (0.0-1.0); MONOCYTES % (AUTO) 7.4 %; NEUTROPHILS # (AUTO) 4.8 10^3/uL (1.5-6.6); NEUTROPHILS % (AUTO) 64.8 %; PLT - PLATELET COUNT 284 10^3/uL (130-450); RED BLOOD COUNT 4.06 10^6/uL (4.20-5.40); RED CELL DISTRIBUTION WIDTH 12.3 % (12.0-15.0); WHITE BLOOD COUNT 7.4 x10^3/uL (4.8-10.8)
[2020-12-06 17:04] LABS: ALBUMIN 4.7 g/dL (3.2-5.5); ALBUMIN/GLOBULIN RATIO 1.7 (1.0-2.2); BILIRUBIN,TOTAL 1.1 mg/dL (0.2-1.0); CALCIUM 9.1 mg/dL (8.5-10.3); CREATININE 0.7 mg/dL (0.4-1.0); POTASSIUM 3.8 mmol/L (3.5-5.0); TOTAL PROTEIN 7.4 g/dL (6.7-8.2)
== END 2020-12-06 16:40 | disposition home or self-care (01) ==
LOC: LAB 16:39
PROVIDERS: ATTEND Family Medicine
DX: R10.13 Epigastric pain (principal)
CPT/HCPCS: 36415; 80053; 85025

== ENCOUNTER 2020-12-06 16:50 | Emergency (ER) | payer OTHER ==
[2020-12-06 16:58] VITALS: BP 121/73
[2020-12-06 17:25] LABS: BILIRUBIN,URINE NEGATIVE (NEGATIVE); GLUCOSE, URINE (UA) NEGATIVE (NEGATIVE); KETONES,URINE (UA) TRACE mg/dL (NEGATIVE); LEUKOCYTE ESTERASE, URINE NEGATIVE (NEGATIVE); NITRITE,URINE NEGATIVE (NEGATIVE); OCCULT BLOOD,URINE TRACE-INTA (NEGATIVE); PH,URINE 5.5 PH (5.0-7.5); PROTEIN,URINE NEGATIVE (NEGATIVE); UROBILINOGEN,URINE 0.2 (NORMAL) E.U./dL (NORMAL)
--- NOTE | 2020-12-06 17:30 | ED Physician Documentation ---
PD HPI FEMALE - Stated complaint Stated Complaint: FEMALE - Chief complaint Chief Complaint: UTI - History obtained from History obtained from: Patient - Additional information Additional information: 2 days urinary frequency with suprapubic pressure and dysuria. No flank pain or fevers. Review of Systems Ten Systems: 10 systems reviewed and negative Constitutional: denies: Fever, Chills GI: reports: Abdominal Pain (epigastric "burning" postprandial, chronic). 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 : Kidney stones HEENT: None Psych: Depression, Anxiety, Panic attacks Musculoskeletal: None Derm: None - Past Surgical History Past Surgical History: Yes /ELEVATOR SERVICEMAN: section - Present Medications Home Medications: Ambulatory Orders Medication Instructions Recorded Confirmed Doxycycline Monohydrate 100 mg PO BID 10 Days #20 tablet 03/25/19 Nitrofurantoin [Macrobid] 1 cap PO BID #10 cap 12/06/20 - Allergies Allergies/Adverse Reactions: Allergies Allergy/AdvReac Type Severity Reaction Status Date / Time ibuprofen [From Motrin] Allergy Respiratory Verified 12/06/20 16:58 naproxen sodium * Allergy Respiratory Verified 12/06/20 16:58 [From Aleve Cold and Sinus] NSAIDS (Non-Steroidal Allergy Respiratory Verified 12/06/20 16:58 Anti-Inflamma ciprofloxacin [From Cipro] AdvReac Rash Verified 12/06/20 16:58 - Social History Does the pt smoke?: No Smoking Status: Never smoker Does the pt drink ETOH?: No Does the pt have substance abuse?: No - Immunizations Immunizations are current?: Yes - POLST Patient has POLST: No PD ED PE NORMAL - Vitals Vital signs reviewed: Yes - General General: Alert and oriented X 3, No acute distress - Cardiac Cardiac: RRR, No murmur - Respiratory Respiratory: No respiratory distress, Clear bilaterally - Abdomen Abdomen: Normal bowel sounds, Soft, Non tender - Back Back: No CVA TTP, No spinal TTP - Derm Derm: Normal color, Warm and dry - Extremities Extremities: No edema, No calf tenderness / cord - Neuro Neuro: Alert and oriented X 3, Normal speech Results - Vitals Vitals: Vital Signs - 24 hr 12/06/20 16:55 Temperature 36.9 C Heart Rate 83 Respiratory 16 Rate Blood Pressure 121/73 O2 Saturation 96 Oxygen O2 Source Room air - Labs Labs: Laboratory Tests 12/06/20 17:03 Urine Color YELLOW Urine Clarity CLEAR Urine pH 5.5 Ur Specific [place] >=1.030 H Urine Protein NEGATIVE Urine Glucose (UA) NEGATIVE Urine Ketones TRACE Urine Occult Blood TRACE-INTA Urine Nitrite NEGATIVE Urine Bilirubin NEGATIVE Urine Urobilinogen 0.2 (NORMAL) Ur Leukocyte Esterase NEGATIVE Ur Microscopic Review NOT INDICATED Urine Culture Comments NOT INDICATED Urine HCG, Qual NEGATIVE PD MEDICAL DECISION MAKING - ED course ED course: Current symptoms point to cystitis despite the negative UA. She also has ongoing gastritis and is getting a referral for gastroenterology or surgery for an EGD which is appropriate. Departure - Departure Disposition: 01 Home, Self Care Clinical Impression: Cystitis Condition: Good Record reviewed to determine appropriate education?: Yes Instructions: ED UTI Cystitis Female Follow-Up: [facility] [Provider Group] Prescriptions: Nitrofurantoin [Macrobid] 1 cap PO BID #10 cap Comments: If you do not hear from the general surgery office soon, the phone number is on this form and you can call. Return for new or worsening symptoms.
[2020-12-06 17:32] LABS: CLARITY,URINE CLEAR (CLEAR); HCG UR QUAL NEGATIVE
[2020-12-06] MEDS ORDERED: NITROFURANTOIN MACRO 100 MG CAPSULE PO STA (17:45)
== END 2020-12-06 17:50 | disposition home or self-care (01) ==
LOC: ED 16:50
DX: N30.90 Cystitis, unspecified without hematuria (principal); K29.70 Gastritis, unspecified, without bleeding; R10.13 Epigastric pain
CPT/HCPCS: 36415; 80053; 81003; 81025; 85025; 99283; A9270; 81001; 87086

== ENCOUNTER 2021-01-09 14:17 | Emergency (ER) | payer OTHER ==
[2021-01-09 14:41] VITALS: BP 112/75
--- NOTE | 2021-01-09 16:40 | ED Physician Documentation ---
History of Present Illness - Stated complaint Stated Complaint: RIGHT LEG PX - Chief complaint Chief Complaint: Ext Problem - History obtained from History obtained from: Patient - History of Present Illness Timing: How many weeks ago (3) Pain level max: 3 Pain level now: 2 - Additonal information Additional information: Patient is a 40-year-old female who presents to the emergency department complaining of bubbling in her right leg for the past 3 weeks. She states that it feels like air bubbles traveling through a hose. She states she gets the sensation from her foot to her groin. Nothing makes it worse. Better with compression stockings. She contacted her doctor today who referred her here to rule out DVT. Patient is not having any shortness of breath or chest pain. No history of blood clots. She states she has having nasal congestion as well. No leg swelling or color changes. 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 PASTER: section - Present Medications Home Medications: Ambulatory Orders Medication Instructions Recorded Confirmed No Known Home Medications 01/09/21 01/09/21 - Allergies Allergies/Adverse Reactions: Allergies Allergy/AdvReac Type Severity Reaction Status Date / Time ibuprofen [From Motrin] Allergy Respiratory Verified 12/06/20 16:58 naproxen sodium * Allergy Respiratory Verified 12/06/20 16:58 [From Aleve Cold and Sinus] NSAIDS (Non-Steroidal Allergy Respiratory Verified 12/06/20 16:58 Anti-Inflamma varenicline [From Chantix] Allergy Hives Verified 01/09/21 14:42 ciprofloxacin [From Cipro] AdvReac Rash Verified 12/06/20 16:58 - Social History Does the pt smoke?: No Smoking Status: Never smoker Does the pt drink ETOH?: No Does the pt have substance abuse?: No - Immunizations Immunizations are current?: Yes - POLST Patient has POLST: No PD ED PE NORMAL - Vitals Vital signs reviewed: Yes - General General: Alert and oriented X 3, No acute distress - HEENT HEENT: Moist mucous membranes - Neck Neck: Supple, no meningeal sign - Cardiac Cardiac: RRR - Respiratory Respiratory: No respiratory distress, Clear bilaterally - Abdomen Abdomen: Soft, Non tender, Non distended - Derm Derm: Warm and dry - Extremities Extremities: No edema - Neuro Neuro: Alert and oriented X 3 Results - Vitals Vitals: Vital Signs - 24 hr 01/09/21 14:33 Temperature 36.0 C L Heart Rate 105 H Respiratory 16 Rate Blood Pressure 112/75 O2 Saturation 98 Oxygen O2 Source Room air - Rads (name of study) Right lower extremity ultrasound Radiology: Final report received, EMP read contemporaneously, See rad report (no DVT) PD MEDICAL DECISION MAKING - ED course Complexity details: reviewed results, re-evaluated patient, considered differential, d/w patient ED course: 40-year-old female with leg pain of unclear etiology. No acute findings on ultrasound. No significant findings physical exam. We will have her follow-up with her doctor for further care. Patient counseled regarding signs and symptoms for which I believe and urgent re-evaluation would be necessary. Patient with good understanding of and agreement to plan and is comfortable going home at this time This document was made in part using voice recognition software. While efforts are made to proofread this document, sound alike and grammatical errors may occur. Patient is ambulating without any difficulty in the emergency department. Normal gait Departure - Departure Disposition: 01 Home, Self Care Clinical Impression: Leg pain Qualifiers: Laterality: right Qualified Code(s): M79.604 - Pain in right leg Condition: Good Instructions: ED Acute Pain [facility] Follow-Up: Lex Calvo ARNP [Primary Care Provider] - Within 1 week Comments: The cause of your pain is unclear. Your ultrasound is normal today. Is recommend to follow-up with your doctor for further care. I would continue the compression stockings at home. Return if you worsen. Discharge Date/Time: 01/09/21 16:53
--- NOTE | 2021-01-09 16:42 | Ultrasound Report ---
PROCEDURE: Duplex Ext Veins Right INDICATIONS: RLE pain TECHNIQUE: Real-time imaging, as well as color and pulse Doppler interrogation, were performed of the lower extr emity deep veins from the inguinal ligament to the popliteal fossa. COMPARISON: None. FINDINGS: The deep veins are normally compressible, and free of intraluminal thrombus. Color and pu lse Doppler demonstrate normal phasic intraluminal flow. There is normal augmentation response to di stal compression maneuver. IMPRESSION: No evidence of deep vein thrombosis involving the right lower extremity. Reviewed by: Emmy aH MD, PhD on 01/09/2021 4:41 PM PST Approved by: Emmy Ha MD, PhD on 01/09/2021 4:41 PM PST Station ID: [id number]
== END 2021-01-09 16:53 | disposition home or self-care (01) ==
LOC: ED 14:17
DX: M79.661 Pain in right lower leg (principal)
CPT/HCPCS: 99282; 99284

== ENCOUNTER 2022-11-25 16:53 | Emergency (ER) | payer OTHER ==
[2022-11-25] MEDS ORDERED: MORPHINE 2 MG/ML CARPUJECT IVP STA (17:46)
[2022-11-25] MEDS ORDERED: SUCRALFATE 1 GM/10 ML UDC PO STA (17:47)
[2022-11-25] MEDS ORDERED: FAMOTIDINE 20 MG TABLET PO STA (17:47)
[2022-11-25] MEDS ORDERED: MAG HYDROX/AL HYDROX/SIMETH 30 ML UDC PO STA (17:47)
[2022-11-25 18:07] LABS: BASOPHILS % (AUTO) 0.4 %; EOSINOPHILS # (AUTO) 0.1 10^3/uL (0.0-0.7); EOSINOPHILS % (AUTO) 1.8 %; HCT - HEMATOCRIT 36.6 % (37.0-47.0); LYMPHOCYTES % (AUTO) 43.8 %; MEAN CORPUSCULAR HEMOGLOBIN 29.9 pg (27.0-31.0); MEAN CORPUSCULAR HGB CONC 32.8 g/dL (32.0-36.0); MEAN CORPUSCULAR VOLUME 91.3 fL (81.0-99.0); MEAN PLATELET VOLUME 9.1 fL (7.9-10.8); MONOCYTES # (AUTO) 0.4 10^3/uL (0.0-1.0); MONOCYTES % (AUTO) 9.6 %; PLT - PLATELET COUNT 232 10^3/uL (130-450); RED BLOOD COUNT 4.01 10^6/uL (4.20-5.40); WHITE BLOOD COUNT 4.5 x10^3/uL (4.8-10.8)
[2022-11-25 18:19] LABS: ALBUMIN 4.2 g/dL (3.2-5.5); ALBUMIN/GLOBULIN RATIO 1.6 (1.0-2.2); BILIRUBIN,TOTAL 0.6 mg/dL (0.2-1.0); CALCIUM 8.9 mg/dL (8.5-10.3); CREATININE 0.7 mg/dL (0.6-1.3); POTASSIUM 3.9 mmol/L (3.5-4.5); TOTAL PROTEIN 6.8 g/dL (6.4-8.9)
--- NOTE | 2022-11-25 18:19 | ED Physician Documentation ---
History of Present Illness - Stated complaint Stated Complaint: BACK/ABD PX - Chief complaint Chief Complaint: Back Pain - History obtained from History obtained from: Patient - History of Present Illness Timing: How many weeks ago (several weeks) - Additonal information Additional information: Patient is a 42-year-old female who presents to the emergency department with 2 complaints. The first is epigastric abdominal pain. Ongoing for the past several years. She states it comes and goes. She has been told that she has hiatal hernia and GERD. She has not taken any medications, she states she is treating it with various teas. She is also complaining of low back pain. Ongoing for the past several weeks. Worse with movement, better with rest. No loss of bowel or bladder control. No numbness or tingling. No head injury. She states that she does heavy lifting at work and her back has been sore. She states she has gone to the chiropractor several times but no relief. She states she does not like to take medications. No fevers. No chills. Denies any possibility of . 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 : Kidney stones HEENT: None Psych: Depression, Anxiety, Panic attacks Musculoskeletal: None Derm: None - Past Surgical History Past Surgical History: Yes /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: section - Present Medications Home Medications: Ambulatory Orders Medication Instructions Recorded Confirmed Esomeprazole Magnesium [Nexium] 40 mg PO DAILY #30 cap 11/25/22 Famotidine [Pepcid] 20 mg PO BID #60 tablet 11/25/22 Sucralfate [Carafate] 1 gm PO ACHS #60 tablet 11/25/22 methocarbamoL [Robaxin] 500 mg PO Q6H PRN #20 tablet 11/25/22 oxyCODONE [Roxicodone] 5 - 10 mg PO Q6H PRN #20 tablet 11/25/22 MDD 6 - Allergies Allergies/Adverse Reactions: Allergies Allergy/AdvReac Type Severity Reaction Status Date / Time ibuprofen [From Motrin] Allergy Respiratory Verified 11/25/22 17:16 naproxen sodium * Allergy Respiratory Verified 11/25/22 17:16 [From Aleve Cold and Sinus] NSAIDS (Non-Steroidal Allergy Respiratory Verified 11/25/22 17:16 Anti-Inflamma varenicline [From Chantix] Allergy Hives Verified 11/25/22 17:16 ciprofloxacin [From Cipro] AdvReac Rash Verified 11/25/22 17:16 - Social History Does the pt smoke?: No Smoking Status: Never smoker Does the pt drink ETOH?: No Does the pt have substance abuse?: No - Immunizations Immunizations are current?: Yes - POLST Patient has POLST: No PD ED PE NORMAL - Vitals Vital signs reviewed: Yes - General General: Alert and oriented X 3, No acute distress - HEENT HEENT: PERRL, Moist mucous membranes - Neck Neck: Supple, no meningeal sign - Cardiac Cardiac: RRR, Strong equal pulses - Respiratory Respiratory: No respiratory distress, Clear bilaterally - Abdomen Abdomen: Soft, Non distended, Other (TTP epigrastic no peritoneal signs. ) - Back Back: No CVA TTP, No spinal TTP, Other (No midline tenderness to palpation or percussion. No step-off or deformity. Paraspinal spasm right low lumbar. 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 Normal great toe extension bilaterally. no saddle anesthesia) - Psych Psych: Normal mood, Normal affect Results - Vitals Vitals: Vital Signs - 24 hr 11/25/22 11/25/22 17:07 19:29 Temperature 36.2 C L Heart Rate 70 60 Respiratory 18 18 Rate Blood Pressure 98/59 L 121/84 H O2 Saturation 99 100 Oxygen O2 Source Room air - Labs Labs: Laboratory Tests 11/25/22 11/25/22 11/25/22 17:55 17:55 18:18 WBC 4.5 L RBC 4.01 L Hgb 12.0 Hct 36.6 L MCV 91.3 MCH 29.9 MCHC 32.8 RDW 13.0 Plt Count 232 MPV 9.1 Neut # (Auto) 2.0 Lymph # (Auto) 2.0 [place] # (Auto) 0.4 Eos # (Auto) 0.1 Baso # (Auto) 0.0 Absolute Nucleated RBC 0.00 Nucleated RBC % 0.0 Sodium 137 Potassium 3.9 Chloride 104 Carbon Dioxide 28 Anion Gap 5.0 L BUN 13 Creatinine 0.7 Estimated GFR (MDRD) 91 Glucose 102 Calcium 8.9 Total Bilirubin 0.6 AST 38 ALT 74 H Alkaline Phosphatase 55 Total Protein 6.8 Albumin 4.2 Globulin 2.6 Albumin/Globulin Ratio 1.6 Lipase 63 Urine Color YELLOW Urine Clarity CLEAR Urine pH 6.0 Ur Specific [place] 1.010 Urine Protein NEGATIVE Urine Glucose (UA) NEGATIVE Urine Ketones NEGATIVE Urine Occult Blood NEGATIVE Urine Nitrite NEGATIVE Urine Bilirubin NEGATIVE Urine Urobilinogen 0.2 (NORMAL) Ur Leukocyte Esterase NEGATIVE Ur Microscopic Review NOT INDICATED Urine Culture Comments NOT INDICATED Urine HCG, Qual NEGATIVE PD Medical Decision Making - ED course Complexity details: reviewed results, re-evaluated patient, considered differential (No cauda equina, no spinal epidural abscess, no fracture, no aortic dissection or evidence of aneursym rupture), d/w patient ED course: Patient is well-appearing, nontoxic. Afebrile. No acute laboratory abnormalities. Feels much better after a GI cocktail and a small dose of morphine. Will place on muscle relaxants and pain medication for home for her back. We will start her on medication for her gastritis/reflux and possible ulcer. No evidence of pancreatitis, no evidence of biliary colic. Not tender in the right upper quadrant. No indication for emergent imaging at this time. Patient is well-appearing, nontoxic. Afebrile. No UTI. Patient counseled regarding signs and symptoms for which I believe and urgent re-evaluation would be necessary. Patient with good understanding of and agreement to plan and is comfortable going home at this time This document was made in part using voice recognition software. While efforts are made to proofread this document, sound alike and grammatical errors may occur. Departure - Departure Disposition: 01 Home, Self Care Clinical Impression: Back strain Qualifiers: Encounter type: initial encounter Qualified Code(s): S39.012A - Strain of muscle, fascia and tendon of lower back, initial encounter Gastritis Qualifiers: Gastritis type: unspecified gastritis Chronicity: chronic Gastritis bleeding: without bleeding Qualified Code(s): K29.50 - Unspecified chronic gastritis without bleeding Condition: Good Instructions: ED Sprain Strain Lumbar, ED PUD Vs Gastritis Follow-Up: Lex Calvo ARNP [Primary Care Provider] - Within 1 week Prescriptions: Sucralfate [Carafate] 1 gm PO ACHS #60 tablet Esomeprazole Magnesium [Nexium] 40 mg PO DAILY #30 cap Famotidine [Pepcid] 20 mg PO BID #60 tablet methocarbamoL [Robaxin] 500 mg PO Q6H PRN #20 tablet PRN Reason: muscle spasm oxyCODONE [Roxicodone] 5 - 10 mg PO Q6H PRN #20 tablet MDD 6 PRN Reason: pain Comments: [facility] prescriptions [facility] [place]. Please follow-up with your doctor for further care. It is recommended that you have an EGD/endoscopy scheduled to evaluate your stomach. Your doctor may want to refer you to physical therapy to help with your ongoing back pain. If your pain fails to improve with medication, they may want to perform an MRI as well. I am prescribing a short course of narcotic pain medication for you. These are potentially dangerous and addictive medications that should be used carefully. These medications may constipate you. Take an [id number] stool softener (docusate) twice daily with plenty of water while taking these medications. If you go 24 hours without a bowel movement, take [id number] miralax, per package instructions. Do not drink or drive while taking these medications. If you received narcotic or sedating medications while in the emergency department, do not drive for 24 hours. Store this medication in a safe, secure place and out of reach of children. It is a violation of federal law to give or sell this medication to another person or to use in a manner other than prescribed. The ED will not refill narcotic prescriptions, including prescriptions lost or stolen. To dispose of unwanted medications: 1. [facility] at [address] in [place] has a medication drop box. They accept prescription medications (in pill form) Tuesday through Tuesday 9:00 a.m. to 5:00 p.m. 2. The [facility] [employer] [facility] accepts prescription medications (in pill form only) for disposal year round. Call for more information. 3. Contact the [facility] for the next [facility] sponsored prescription drug collection event. , [phone], or [phone]; Discharge Date/Time: 11/25/22 19:34
[2022-11-25 18:33] LABS: BILIRUBIN,URINE NEGATIVE (NEGATIVE); GLUCOSE, URINE (UA) NEGATIVE (NEGATIVE); KETONES,URINE (UA) NEGATIVE (NEGATIVE); LEUKOCYTE ESTERASE, URINE NEGATIVE (NEGATIVE); NITRITE,URINE NEGATIVE (NEGATIVE); OCCULT BLOOD,URINE NEGATIVE (NEGATIVE); PROTEIN,URINE NEGATIVE (NEGATIVE); UROBILINOGEN,URINE 0.2 (NORMAL) E.U./dL (NORMAL)
[2022-11-25 18:35] LABS: CLARITY,URINE CLEAR (CLEAR); HCG UR QUAL NEGATIVE
[2022-11-25] MEDS ORDERED: methocarbamoL 500 MG TABLET PO STA (18:59)
[2022-11-25] MEDS ORDERED: oxyCODONE 5 MG TABLET PO STA (18:59)
[2022-11-25 19:35] VITALS: BP 121/84; O2SAT 100
== END 2022-11-25 19:34 | disposition home or self-care (01) ==
LOC: ED 16:53
DX: S39.012A Strain of muscle, fascia and tendon of lower back, initial encounter (principal); X58.XXXA Exposure to other specified factors, initial encounter; K29.50 Unspecified chronic gastritis without bleeding
CPT/HCPCS: 36415; 80053; 81003; 81025; 83690; 85025; 96374; 99283; A9270; 81001; 87086